=== PATIENT | female | born 1945 | race Caucasian/White ===

== ENCOUNTER 2016-04-05 15:55 | Emergency (ER) | payer OTHER ==
--- NOTE | 2016-04-05 16:46 | DIAGNOSTIC IMAGING REPORT ---
PROCEDURE: XR CHEST 2 VIEW INDICATION: Shortness of breath and cough x 4 weeks, initial encounter TECHNIQUE: PA and lateral view. COMPARISON: Chest x-ray 12/14/2015 FINDINGS: Mild hyperinflation but lungs are clear. Median sternotomy and CABG. Heart size, mediastinum and pulmonary vessels are normal. Bony thorax is unremarkable. IMPRESSION: 1. CABG 2. Hyperinflation consistent with a history of asthma
--- NOTE | 2016-04-05 18:01 | ED NURSING NOTES ---
Clinical Report - Nurses [facility] [address] [place] [address] 04/05/2016 15:56 Patient: HELADIO VILLEGAS TRIAGE Triage time 16:02. Acuity: LEVEL 3. Chief Complaint: DIFFICULTY BREATHING. 16:03 04/05/16. 16:03 04/05/16. ( Pt states she has been feeling ill. Pt states she has seen her PCP and given abx.). --16:07 Tariq Wells R.N. 16:02 04/05/16. BP: 188/87. HR: 90. RR: 20. O2 saturation: 100% on room air. Temp: 98.5 F (oral). --16:07 Tariq Wells R.N. Weight: 63.5 kg stated. Height/Length: 62 inches Per Patient. BMI: 25.6. --16:05 Tariq Wells R.N. Medications Allopurinol Oral (Tablet 300 mg) 1 tablet, daily. Aspirin Oral (Tablet 325 mg) 1 tablet, daily. D3 Adult Oral. Gabapentin Oral (Capsule 300 mg) 1 capsule, 2x a day. Isosorbide Mononitrate Oral 30mg, daily. Levothyroxine Sodium Oral 137mcg, daily. Melatonin Oral. MetFORMIN HCl ER (MOD) Oral (Tablet Extended Release 24 Hour 500 mg) 1 tablet, twice a day. Metoprolol Tartrate Oral (Tablet 50 mg) 1 tablet, twice daily. --16:05 Tariq Wells R.N. Nitroglycerin Sublingual. Oxybutynin Chloride ER Oral (Tablet Extended Release 24 Hour 5 mg) 1/2 tablet, 3 times daily. Simvastatin Oral (Tablet 80 mg) 1/2 tablet, daily. --16:05 Tariq Wells R.N. Chlorthalidone Oral (Tablet 25 mg) 1 tablet, daily. --16:52 Tariq Wells R.N. Omeprazole Oral 20 mg, daily. --16:55 Tariq Wells R.N. Probiotic Oral 1 pill, daily. --16:55 Tariq Wells R.N. The following entry was struck and corrected by Tariq Wells R.N., 16:55 (04/05/16) Reason for correction - other(correction). <<STRICKEN ENTRY-- Probiotic Oral. --16:55 Tariq Wells R.N. --END STRIKE>> The following entry was struck by Tariq Wells R.N., 16:51 (04/05/16) Reason - other. <<STRICKEN ENTRY-- Ranitidine HCl Oral (Capsule 150 mg) 1 capsule, 2x a day. --16:05 Tariq Wells R.N. --END STRIKE>>. Allergies Amlodipine. Ciprofloxacin. Codeine. Erythromycin. Nitrofurantoin. Nuts. --16:05 Tariq Wells R.N. Penicillin. PredniSONE. Zestril. --16:05 Tariq Wells R.N. Bactrim. (Bactrim DS 800/160 SMZ/TMP 800/160) --16:49 Tariq Wells R.N. History Arrived by private vehicle. Historian: patient. Accompanied by family. Primary physician ([facility]). 16:03 04/05/16. ( 3-4 Weeks ago). Treatment PRICE LISTER: None. PAST MEDICAL HX: Immunizations: up-to-date. SOCIAL HX: Former smoker (quit 20 years ago). No alcohol use or drug use. No infectious disease exposure. ABUSE ASSESSMENT: No report of abuse. FALL RISK ASSESSMENT: Fall risk assessment completed. No fall risk identified. NUTRITIONAL RISK ASSESSMENT: The nutritional risk assessment revealed no deficiencies. FUNCTIONAL ASSESSMENT: Functional assessment: no impairments noted. LEARNING NEEDS ASSESSMENT: The learning needs assessment revealed no barriers. SKIN INTEGRITY ASSESSMENT: Skin integrity risk assessment completed. No skin integrity risk identified. --16:07 Tariq Wells R.N. PROBLEMS: Allergic Reaction. Abnormal Test. Syncope. Valvular Heart Disease. Myocardial Infarction. Diabetes Mellitus. Heart Disease. Pneumonia. Asthma. Congestive Heart Failure. COPD - Chronic Obstructive Pulmonary Disease. Arthritis. --16:06 Tariq Wells R.N. Atrial Fibrillation. --16:08 Tariq Wells R.N. ADDITIONAL SURGERIES: Cholecystectomy. Coronary Artery Bypass Graft. Hysterectomy. Oophorectomy. Right breast lump removed. Salpingectomy. --16:06 Tariq Wells R.N. Assessment 16:04/05/16. --16:07 Tariq Wells R.N. Interventions 16:04/05/16. 16:04/05/16. ID and allergy band on patient. --16:07 Tariq Wells R.N. PHYSICAL ASSESSMENT 16:04/05/16. GENERAL / NEURO / PSYCH: Alert. Oriented X 4. RESPIRATORY: Mild respiratory distress. The patient can speak in full sentences. CVS: Capillary refill less than 2 seconds. SKIN: Skin is warm and dry. --16:07 Tariq Wells R.N. NURSING PROGRESS NOTES 16:04/05/16. The plan of care for this patient has been created. division human resources manager, pulse oximeter and NIBP monitor placed on patient; monitor alarms on. Patient gowned. Head of bed elevated. Two patient identifiers checked. Call light placed in reach. Side rails up x 2. Bed placed in lowest position. Brakes of bed on. Brakes of chair on. --16:08 Tariq Wells R.N. 16:04/05/16. Patient ready for evaluation- chart flagged and notification provided. --16:08 Tariq Wells R.N. 16:24 04/05/2016 Site #1 started via IV in the right antecubital space with an 20g angiocath, with aseptic technique and good blood return; one attempt. Blood drawn: rainbow set. Labeled in the presence of the patient and sent to the lab. Saline lock flushed with 10 mL saline. --16:24 Tariq Wells R.N. 16:24 04/05/2016 Started bag #1 500 mL IV Fluids IV NS (Saline); at 1000 mL/hr over 1 hour(s) via site #1. Allergies verified and confirmed 5 rights. IV patency established. IV site checked: no pain, redness, or swelling. IV flushed thoroughly pre- and post-medication administration. Completed per protocol. --16:24 Tariq Wells R.N. 16:31 04/05/16. Patient transported to radiology by wheelchair with tech. --16:31 Tariq Wells R.N. 16:32 04/05/16. ( Lacate drawn and sent to lab drawn w/o tourniquet). --16:32 Tariq Wells R.N. 16:32 04/05/16. Patient ID band checked for patient name and birthdate: patient confirmed. Instructions provided to collect clean catch urine and patient verbalized understanding. Clean catch urine collected with return of yellow-colored urine; sample sent to lab for urinalysis and culture. Specimen labeled in the presence of the patient. --16:32 Tariq Wells R.N. 16:33 04/05/16. Patient ID band checked for patient name and birthdate: patient confirmed. Flu swab obtained by RN via nasal pharyngeal swab. Labeled in the presence of the patient and sent to lab. --16:33 Tariq Wells R.N. 16:39 04/05/2016 Duoneb (Ipratropium-Albuterol) Neb TX Nebulizer 1 unit dose given. Given by the respiratory therapist. Allergies verified and confirmed 5 rights. Vinod Pang --16:39 Vinod Pang 16:41 04/05/2016 SOLU-MEDROL (MethylPREDNISolone Sodium Succ) IVP 125 mg given over 2 minute(s) via site #1. Allergies verified and confirmed 5 rights. IV patency established. IV site checked: no pain, redness, or swelling. IV flushed thoroughly pre- and post-medication administration. IVP given by RN (Verified with , ok to give despite prednisone allergy). --16:41 Tariq Wells R.N. 16:42 04/05/16. --16:42 Tariq Wells R.N. 16:41 04/05/16. BP: 175/77. HR: 76. RR: 16. O2 saturation: 100% on room air. --16:42 Tariq Wells R.N. 16:42 04/05/16. Cardiac rhythm: normal sinus rhythm; (79). --16:42 Tariq Wells R.N. 17:02 04/05/16. Patient and family informed about reason for wait and about plan of care. --17:02 Tariq Wells R.N. 17:14 04/05/2016 Potassium Chloride (Potassium Chloride ER) PO 40 meq given. Allergies verified and confirmed 5 rights. --17:14 Tariq Wells R.N. 17:15 04/05/2016 Tylenol (Acetaminophen) PO 650 mg given. Allergies verified and confirmed 5 rights. --17:15 Tariq Wells R.N. 17:16 04/05/2016 IV Fluids IV NS Discontinued: bag #1 infused. Total amount infused: 500 mL. --17:16 Tariq Wells R.N. 17:18 04/05/16. BP: 167/56. HR: 71. RR: 14. O2 saturation: 100% on nasal cannula at 2 liters/minute. --17:18 Tariq Wells R.N. 17:18 04/05/16. Cardiac rhythm: normal sinus rhythm; (70). --17:18 Tariq Wells R.N. 17:20 04/05/2016 Duoneb (Ipratropium-Albuterol) Neb TX 1 unit dose given. Given by the respiratory therapist. Allergies verified and confirmed 5 rights. --17:20 Tariq Wells R.N. 17:20 04/05/16. Reassessment after fluids administered and medication administered. Overall patient status is improved- she states feels better. --17:20 Tariq Wells R.N. 17:40 04/05/16. Patient and family informed about reason for wait and about plan of care. --17:40 Tariq Wells R.N. 17:40 04/05/16. Cardiac rhythm: normal sinus rhythm. --17:40 Tariq Wells R.N. 17:40 04/05/16. HR: 89. RR: 16. O2 saturation: 100% on nasal cannula at 2 liters/minute. --17:40 Tariq Wells R.N. 17:51 04/05/16. Cardiac rhythm: normal sinus rhythm; (91). --17:51 Tariq Wells R.N. 17:49 04/05/16. BP: 152/76. HR: 91. RR: 20. O2 saturation: 100% on nasal cannula at 2 liters/minute. Temp: 98.2 F (oral). Pain level now: 8/10. Additional comments: c/o throat pain. --17:51 Tariq Wells R.N. 17:51 04/05/16. Patient and family informed about reason for wait and about plan of care. --17:51 Tariq Wells R.N. 18:10. The patient is resting quietly. Overall patient status is improved- she states feels the same. RESPIRATORY: No respiratory distress. CVS: Cardiac rhythm: sinus rhythm. SKIN: Skin is warm and dry. --18:48 Sara Rojas R.N. DISPOSITION / DISCHARGE 18:10 04/05/2016 Site #1 removed upon discharge. Catheter intact. Bandaid applied (by Arianne Han RN). --18:45 Sara Rojas R.N. Departure time: 1809. Condition at departure: stable. No learning barriers present. Discharge instructions provided and reviewed with the patient. Patient verbalized understanding. Written instructions provided in Tunisian. The patient was discharged home and accompanied by educational administration teacher. She left the Emergency Department ambulatory and via private vehicle. FALL RISK ASSESSMENT: Fall risk assessment completed. No fall risk identified. --18:46 Sara Rojas R.N. 18:10 04/05/16. BP: 165/72. HR: 73. RR: 18. O2 saturation: 100% on room air. Temp: 98.1 F (oral). Pain level now: 0/10. Additional comments: ERMD aware of BP. --18:46 Sara Rojas R.N. Locked/Released at 04/05/2016 18:48 by Sara Rojas R.N.
--- NOTE | 2016-04-05 18:01 | ED CLINICAL REPORT ---
Clinical Report - Physicians/Mid Levels [facility] [address] [place] [address] 04/05/2016 15:56 Patient: HELADIO VILLEGAS Arrived- By private vehicle. Historian- patient. HISTORY OF PRESENT ILLNESS Chief Complaint: COUGH. This started past few days and is still present (staying the same). It was abrupt in onset and has been constant and waxing/waning but is not gone now. The illness is described as moderate. The patient has had a cough, difficulty breathing, a sore throat, nasal congestion and fever. She has had muscle aches. No chills. (reports hx of asthma). Additional history - No known contact with a sick individual. No recent travel. ( wheezing, nausea, and vomiting). Similar symptoms previously: Several times. Recent medical care: Not recently seen/assessed. REVIEW OF SYSTEMS No diarrhea. All systems otherwise negative, except as recorded above. PAST HISTORY See nurses notes. SOCIAL HISTORY Former smoker. Not exposed to second-hand smoke at home. No alcohol use or drug use. No recent travel. Is a local resident. ADDITIONAL NOTES The nursing notes have been reviewed. PHYSICAL EXAM Vital Signs: 04/05/2016 16:02 BP: 188/87. HR: 90. RR: 20. O2 saturation: 100%. Temp: 98.5 F. Blood pressure normal. Oxygen saturation normal. Appearance: Alert. No acute distress. Eyes: Pupils equal, round and reactive to light. Eyes normal inspection. ENT: Ears normal. Nose normal. Pharynx normal. Uvula midline. The mucous membranes are not dry. Neck: Normal inspection. Neck supple. No JVD or meningeal signs. CVS: Normal heart rate and rhythm. Heart sounds normal. Pulses normal. Respiratory: No respiratory distress. No respiratory distress. Expiratory bilateral wheezes diffusely. No moderate wheezes bilaterally. Breath sounds normal. No rales, rhonchi or stridor. Abdomen: Soft and nontender. No organomegaly. Back: Normal inspection. Skin: Skin warm and dry. Normal skin color. No rash. Normal skin turgor. Extremities: Extremities exhibit normal ROM. No lower extremity edema. Neuro: Oriented X 3. No motor deficit. No sensory deficit. LABS, X-RAYS, AND EKG Laboratory Tests: UA-Culture if indicated: (ARLYN: 04/05/2016 16:20) ( [facility] [place]/05/[place] 16:54) Final results Test Result Flag Units (Reference) URINE COLOR DARK YELLOW URINE APPEARANCE CLEAR URINE GLUCOSE NEGATIVE (NEGATIVE) URINE BILIRUBIN ICTOTEST NEGATIVE (NEGATIVE) URINE KETONE TRACE (NEGATIVE) URINE SPECIFIC GRAVITY 1.025 (1.010-1.030) URINE PH 5.5 (5.0-8.0) URINE PROTEIN 1+ (NEGATIVE) URINE UROBILINOGEN 0.2 EU/dL (0.2-1.0) URINE NITRITE NEGATIVE (NEGATIVE) URINE BLOOD TRACE (NEGATIVE) URINE LEUK ESTERASE NEGATIVE (NEGATIVE) URINE RBC 0-1 rbc/hpf (0-1) URINE WBC 3-5 wbc/hpf (0-1) URINE EPITHELIAL CELLS 0-1 EPI/hpf (0-5) URINE BACTERIA TRACE (<1+) (NONE SEEN) URINE COMMENT CULT NOT INDICATED 1+ MUCUSURINE CULTURES ARE SET-UP BASED ON THE FOLLOWING CRITERIA:POSITIVE NITRITEPOSITIVE LEUKOCYTE ESTERASEGREATER THAN 10 WHITE BLOOD CELLSMODERATE (2+) OR GREATER BACTERIA CBC w Diff: (ARLYN: 04/05/2016 16:20) ( [facility] 04/05/2016 16:47) Final results Test Result Flag Units (Reference) WHITE BLOOD COUNT 9.6 K/uL (4.5-11.5) RED BLOOD COUNT 4.60 M/uL (4.00-5.20) HEMOGLOBIN 13.6 gm/dL (12.0-16.0) HEMATOCRIT 40.1 % (36.0-46.0) MEAN CELL VOLUME 87 fL (80-100) MEAN CORPUSCULAR HGB 30 pg (26-34) MEAN CORPUSCULAR HGB CONC 34 g/dL (31-37) RED CELL DISTRIBUTION WIDTH 14.0 % (11.6-14.8) PLATELET COUNT 369 K/uL (150-400) NEUTROPHIL % 81.1 H % (50-75) LYMPH % 11.6 L % (25-40) MONO % 5.6 % (3-14) EOSINOPHIL % 1.5 % (0-4) BASOPHIL % 0.2 % (0-2) Lactate, Serum: (ARLYN: 04/05/2016 16:20) ( [facility] [place] 04/05/2016 17:18) Final results Test Result Flag Units (Reference) LACTIC ACID 1.1 mmol/L (0.4-2.0) CMP: (ARLYN: 04/05/2016 16:20) ( [facility] 04/05/2016 17:02) Final results Test Result Flag Units (Reference) LIPASE 235 U/L (73-393) GLUCOSE 125 H mg/dL (70-110) SAMPLE GROSSLY LIPEMIC-TREATED FOR LIPEMIC INTERFERENCE BUN 22 H mg/dL (7-18) CREATININE 1.1 mg/dL (0.6-1.3) Estimated GFR 52.34 mL/min Estimated GFR- >60 mL/min Note: Persistent reduction over 3 months in eGFR<60 mL/min/1.73 m2 defines CKD. Patients with eGFR values>=60 mL/min/1.73 m2 may also have CKD if evidence ofpersistent proteinuria. Additional information may be foundat www.kidney.org. SODIUM 141 mmol/L (136-145) POTASSIUM 3.1 L mmol/L (3.5-5.1) CHLORIDE 101 mmol/L (98-107) CARBON DIOXIDE 27 mmol/L (21-32) CALCIUM 9.1 mg/dL (8.5-10.1) TOTAL PROTEIN 8.3 H g/dL (6.4-8.2) ALBUMIN 3.8 g/dL (3.3-5.0) BILIRUBIN, TOTAL 0.2 mg/dL (0.0-1.0) ALKALINE PHOSPHATASE 118 H U/L (46-116) AST (SGOT) 16 U/L (15-37) ALT (SGPT) 24 U/L (12-78) Rapid Influenza Screen: (ARLYN: 04/05/2016 16:20) ( [facility] [place]/05/2016 16:50) Final results SPECIMEN DESCRIPTION: NASAL Test Result Flag Units (Reference) RAPID INFLUENZA SCREEN DATE: 04/05/16 INFLUENZA A: NEGATIVE SCREEN FOR INFLUENZA A INFLUENZA B: NEGATIVE SCREEN FOR INFLUENZA B . PROGRESS AND PROCEDURES Course of Care: The patient is a 70-year-old female with history of asthma presenting for evaluation of upper respiratory tract symptoms including nausea and vomiting. The patient appears to be wheezing on examination. at this time most likely viral etiology. We'll evaluate for signs of pneumonia, pancreatitis, or electrolyte derangements as a result of the patient's illness. Patient appears nontoxic. Patient is not improved as expected with breathing treatments, we'll evaluate other etiologies for any shortness of breath. After the first breathing treatment has been given, patient reports feeling significantly better. Patient is stating that it is less difficult for her to catch her breath. Patient appears less anxious at this time. Patient continues to benontoxic. We are currently awaiting patient's laboratory studies. Chest x-ray and laboratory studies did not show any acute abnormalities. Urinalysis is unremarkable. Because complete blood couoenot show acute abnormalities. Lipase and liver enzymes are also normal. Patient significantly improved afterbreathing treatments and steroids been given. We will provide patient another breathing treatment and likely be able to discharge patient once the breathing treatment has been given. Patient reports significant improvement. Patient states that she feels well enough to return home. I discussion with patient in regards to her workup here in the emergency department and need for using her inhaler. Patient states that she spent $50 on 1 inhaler and cannot afford more inhalers. Discussed with patient that there are many doses of the medication within and an inhaler and should not be afraid to use them if she is short of breath. Patient is a good outpatient candidate. Do not feel patient has pulmonary embolism. Do not feel etiology of her symptoms today are due to this. Do not feel further workup is needed. Symptoms are likely due to an asthma exacerbation from upper respiratory tract infection. Disposition: Discharged. Condition: good. CLINICAL IMPRESSION 04/05/2016 16:02 BP: 188/87. HR: 90. RR: 20. O2 saturation: 100%. Temp: 98.5 F. Blood pressure normal. Oxygen saturation normal. Acute bronchospasm (acute). Acute pharyngitis (acute). Pharyngitis. INSTRUCTIONS (take your breathing medication and antibiotics as directed). Your Current Medications: CONTINUE TAKING THE FOLLOWING MEDICATIONS: Allopurinol Oral : Tablet 300 mg, 1 tablet daily. Aspirin Oral : Tablet 325 mg, 1 tablet daily. Chlorthalidone Oral : Tablet 25 mg, 1 tablet daily. D3 Adult Oral. Gabapentin Oral : Capsule 300 mg, 1 capsule 2x a day. Isosorbide Mononitrate Oral : 30mg daily. Levothyroxine Sodium Oral : 137mcg daily. Melatonin Oral. MetFORMIN HCl ER (MOD) Oral : Tablet Extended Release 24 Hour 500 mg, 1 tablet twice a day. Metoprolol Tartrate Oral : Tablet 50 mg, 1 tablet twice daily. Nitroglycerin Sublingual. Omeprazole Oral : 20 mg daily. Oxybutynin Chloride ER Oral : Tablet Extended Release 24 Hour 5 mg, 1/2 tablet 3 times daily. Probiotic Oral : 1 pill daily. Simvastatin Oral : Tablet 80 mg, 1/2 tablet daily. Follow-up: Return to the emergency department as needed. Follow up with your doctor in three days. Reason for referral: recheck today's concerns. Summary of care provided to patient via paper. Screening today revealed the patient's blood pressure to be in the normal range. The patient should follow up with a primary care provider for blood pressure management. Understanding of the discharge instructions verbalized by patient. (Electronically signed by Clif Victoria Dr. 04/08/2016 6:53)
--- NOTE | 2016-04-05 18:01 | ED ORDER SUMMARY ---
..... Patient: HELADIO VILLEGAS OrderSheet [facility] VisitID: [id number] [address] [place] [address] 70y, F Registration Date/Time: 04/05/2016 ORDER SHEET Weight: 63.5 kg (stated) Allergies: Amlodipine, Ciprofloxacin, Codeine, Erythromycin, Nitrofurantoin, Nuts, Penicillin, PredniSONE, Zestril, Bactrim GENERAL ORDERS: Chest 2V Urgent (16:17 04/05/2016 Gagandeep Leos) (Ack 16:21 LMuller) (16:31 JBoardley R.N.) Cops (Continuous) (Respiratory Distress) (16:17 04/05/2016 Gagandeep Leos) (Ack 16:21 LMuller) (16:22 JBoardley R.N.) CMP Urgent (16:18 04/05/2016 Gagandeep Leos) (Ack 16:21 LMuller) (16:23 JBoardley R.N.) CBC w Diff Urgent (16:18 04/05/2016 Gagandeep Leos) (Ack 16:21 LMuller) (16:23 JBoardley R.N.) Lipase Urgent (16:18 04/05/2016 Gagandeep Leos) (Ack 16:21 LMuller) (16:23 JBoardley R.N.) UA-Culture if indicated Urgent (16:18 04/05/2016 Gagandeep eLos) (Ack 16:21 LMuller) (16:33 JBoardley R.N.) Lactate, Serum Urgent (16:18 04/05/2016 Gagandeep Leos) (Ack 16:21 LMuller) (16:23 JBoardley R.N.) Pulse oximeter (16:18 04/05/2016 Gagandeep Leos) (Ack 16:21 LMuller) (16:22 JBoardley R.N.) Oxygen (2 L/min) (NC) (16:18 04/05/2016 Gagandeep Leos) (Ack 16:21 LMuller) (16:22 JBoardley R.N.) Rapid Influenza Screen (Nasal Pharyngeal) (nasal) Urgent (16:26 04/05/2016 JBmalachi R.NHemal verbal order read back to Gagandeep Leos) (16:31 JBoardley R.N.) MEDICATION ORDERS: DuoNeb Neb Tx 1 unit dose (NOW) (16:18 04/05/2016 Gagandeep Leos) (Ack 16:22 JBoardlelopez R.N.) (16:39 JZiglar) Potassium Chloride PO 40 meq (NOW) (17:07 04/05/2016 Gagandeep Leos) (Ack 17:07 JBoardley R.N.) (17:14 JBoardlelopez R.N.) Tylenol PO 650 mg (NOW) (17:07 04/05/2016 Gagandeep Leos) (Ack 17:07 JBoardley R.N.) (17:15 JBoardley R.N.) DuoNeb Neb Tx 1 unit dose (NOW) (17:09 04/05/2016 Gagandeep Leos) (17:20 JBoardley R.N.) IV FLUIDS: IV NS : initial bolus 500 mL (1000 mL/hr), then none - for X1 (NOW) (16:17 04/05/2016 Gagandeep Leos) (Ack 16:23 JBoardley R.N.) (16:24 JBoardley R.N.) Solu-MEDROL IV 125 mg (NOW) (16:18 04/05/2016 Gagandeep Leos) (Ack 16:23 JBoardley R.N.) (16:41 JBoardley R.N.) ORDER SHEET NOTES: [Electronically signed by Sara Rojas R.N. (18:48 04/05/2016)] [Electronically signed by Clif Victoria Dr. (06:53 04/08/2016)] [Electronically locked/signed by Sara Rojas R.N. (18:48 04/05/2016)]
--- NOTE | 2016-04-05 18:01 | ED ORDER SUMMARY ---
..... Patient: HELADIO VILLEGAS OrderSheet [facility] VisitID: [id number] [address] [place] [address] 70y, F Registration Date/Time: 04/05/2016 ORDER SHEET Weight: 63.5 kg (stated) Allergies: Amlodipine, Ciprofloxacin, Codeine, Erythromycin, Nitrofurantoin, Nuts, Penicillin, PredniSONE, Zestril, Bactrim GENERAL ORDERS: Chest 2V Urgent (16:17 04/05/2016 Gagandeep Leos) (Ack 16:21 LMuller) (16:31 JBoardley R.N.) Developer Relations Manager (Continuous) (Respiratory Distress) (16:17 04/05/2016 Gagandeep Leos) (Ack 16:21 LMuller) (16:22 JBoardley R.N.) CMP Urgent (16:18 04/05/2016 Gagandeep Leos) (Ack 16:21 LMuller) (16:23 JBoardley R.N.) CBC w Diff Urgent (16:18 04/05/2016 Gagandeep Leos) (Ack 16:21 LMuller) (16:23 JBoardley R.N.) Lipase Urgent (16:18 04/05/2016 Gagandeep Leos) (Ack 16:21 LMuller) (16:23 JBoardley R.N.) UA-Culture if indicated Urgent (16:18 04/05/2016 Gagandeep Leos) (Ack 16:21 LMuller) (16:33 JBoardley R.N.) Lactate, Serum Urgent (16:18 04/05/2016 Gagandeep Leos) (Ack 16:21 LMuller) (16:23 JBoardley R.N.) Pulse oximeter (16:18 04/05/2016 Gagandeep Leos) (Ack 16:21 LMuller) (16:22 JBoardley R.N.) Oxygen (2 L/min) (NC) (16:18 04/05/2016 Gagandeep Leos) (Ack 16:21 LMuller) (16:22 JBoardley R.N.) Rapid Influenza Screen (Nasal Pharyngeal) (nasal) Urgent (16:26 04/05/2016 JBmalachi R.NHemal verbal order read back to Gagandeep Leos) (16:31 JBoardley R.N.) MEDICATION ORDERS: DuoNeb Neb Tx 1 unit dose (NOW) (16:18 04/05/2016 Gagandeep Leos) (Ack 16:22 JBoardlelopez R.N.) (16:39 JZiglar) Potassium Chloride PO 40 meq (NOW) (17:07 04/05/2016 Gagandeep Leos) (Ack 17:07 JBoardley R.N.) (17:14 JBoardlelopez R.N.) Tylenol PO 650 mg (NOW) (17:07 04/05/2016 Gagandeep Leos) (Ack 17:07 JBoardley R.N.) (17:15 JBoardley R.N.) DuoNeb Neb Tx 1 unit dose (NOW) (17:09 04/05/2016 Gagandeep Leos) (17:20 JBoardley R.N.) IV FLUIDS: IV NS : initial bolus 500 mL (1000 mL/hr), then none - for X1 (NOW) (16:17 04/05/2016 Gagandeep Leos) (Ack 16:23 JBoardley R.N.) (16:24 JBoardley R.N.) Solu-MEDROL IV 125 mg (NOW) (16:18 04/05/2016 Gagandeep Leos) (Ack 16:23 JBoardley R.N.) (16:41 JBoardley R.N.) ORDER SHEET NOTES: [Electronically signed by Sara Rojas R.N. (18:48 04/05/2016)] [Electronically signed by Clif Victoria Dr. (06:53 04/08/2016)] [Electronically locked/signed by Sara Rojas R.N. (18:48 04/05/2016)]
--- NOTE | 2016-04-08 06:54 | ED DISCHARGE INSTRUCTIONS ---
Patient: HELADIO VILLEGAS General Instructions [facility] VisitID: [id number] [place] [address] 70y, F Registration Date/Time: 04/05/2016 04/05/2016 16:02 BP: 188/87. HR: 90. RR: 20. O2 saturation: 100%. Temp: 98.5 F. Blood pressure normal. Oxygen saturation normal. Acute bronchospasm (acute). Acute pharyngitis (acute). Pharyngitis. INSTRUCTIONS (take your breathing medication and antibiotics as directed). Your Current Medications: CONTINUE TAKING THE FOLLOWING MEDICATIONS: Allopurinol Oral : Tablet 300 mg, 1 tablet daily. Aspirin Oral : Tablet 325 mg, 1 tablet daily. Chlorthalidone Oral : Tablet 25 mg, 1 tablet daily. D3 Adult Oral. Gabapentin Oral : Capsule 300 mg, 1 capsule 2x a day. Isosorbide Mononitrate Oral : 30mg daily. Levothyroxine Sodium Oral : 137mcg daily. Melatonin Oral. MetFORMIN HCl ER (MOD) Oral : Tablet Extended Release 24 Hour 500 mg, 1 tablet twice a day. Metoprolol Tartrate Oral : Tablet 50 mg, 1 tablet twice daily. Nitroglycerin Sublingual. Omeprazole Oral : 20 mg daily. Oxybutynin Chloride ER Oral : Tablet Extended Release 24 Hour 5 mg, 1/2 tablet 3 times daily. Probiotic Oral : 1 pill daily. Simvastatin Oral : Tablet 80 mg, 1/2 tablet daily. Follow-up: Return to the emergency department as needed. Follow up with your doctor in three days. Reason for referral: recheck today's concerns. Summary of care provided to patient via paper. Screening today revealed the patient's blood pressure to be in the normal range. The patient should follow up with a primary care provider for blood pressure management. Understanding of the discharge instructions verbalized by patient. ADDITIONAL INFORMATION Bronchospasm (Adult) Bronchospasm occurs when the airways (bronchial tubes) go into spasm and contract. This makes it hard to breathe and causes wheezing (a high-pitched whistling sound). Bronchospasm can also cause frequent coughing without the wheezing sound. Bronchospasm is due to irritation, inflammation or allergic reaction of the airways. People with asthma get bronchospasm. However, not everyone with bronchospasm has asthma. Being exposed to harmful fumes, a recent case of bronchitis, or a flare-up of chronic emphysema (COPD) may cause the airways to spasm. An episode of bronchospasm may last 7-14 days. Medicine may be prescribed to relax the airways and prevent wheezing. Antibiotics will be prescribed only if your doctor thinks there is a bacterial infection. Antibiotics do not help a viral infection. Home Care: Drink lots of water or other fluids (at least 10 glasses a day) during an attack. This will loosen lung secretions and make it easier to breathe. If you have heart or kidney disease, check with your doctor before you drink extra amounts of fluids. Take prescribed medicine exactly at the times advised. If you have a hand-held inhaler or aerosol breathing medicine, do not use it more than once every four hours, unless told to do so. If prescribed an antibiotic or prednisone, take all of the medicine even if you are feeling better after a few days. Do not smoke. Avoid being exposed to the smoke of others. If you were given an inhaler, use it exactly as directed. If you need to use it more often than prescribed, your condition may be getting worse. Contact your doctor or this facility. Follow Up With Your Doctor, Or As Directed. [ NOTE: If you are age 65 or older, or if you have chronic asthma or COPD, we recommend a PNEUMOCOCCAL VACCINATION every five years and a yearly INFLUENZA VACCINATION (FLU-SHOT) every . Ask your doctor about this.] Get Prompt Medical Attention If Any Of The Following Occur: Increased wheezing or shortness of breath Need to use your inhalers more often than usual without relief Fever of 100.4F (38C) or higher, or as directed by your healthcare provider Coughing up lots of dark-colored or bloody sputum (mucus) Chest pain with each breath You do not start to improve within 24 hours Viral Respiratory Illness [Adult] You have an Upper Respiratory Illness (URI) caused by a virus. This illness is contagious during the first few days. It is spread through the air by coughing and sneezing or by direct contact (touching the sick person and then touching your own eyes, nose or mouth). Most viral illnesses go away within 7-10 days with rest and simple home remedies. Sometimes, the illness may last for several weeks. Antibiotics will not kill a virus and are generally not prescribed for this condition. Home Care: 1) If symptoms are severe, rest at home for the first 2-3 days. When you resume activity, don't let yourself get too tired. 2) Avoid being exposed to cigarette smoke (yours or others). 3) Tylenol (acetaminophen) or ibuprofen (Advil, Motrin) will help fever, muscle aching and headache. (Persons under 18 with fever should not take aspirin since this may cause liver damage.) 4) Your appetite may be poor, so a light diet is fine. Avoid dehydration by drinking 6-8 glasses of fluids per day (water, soft drinks, juices, tea, soup). Extra fluids will help loosen secretions in the nose and lungs. 5) Orhq-fsy-ovbbrmg cold medicines will not shorten the length of time youre sick, but they may be helpful for the following symptoms: cough (Robitussin DM); sore throat (Chloraseptic lozenges or spray); nasal and sinus congestion (Actifed, Sudafed, Chlortrimeton). Follow Up with your doctor or as advised if you dont improve over the next week. Get Prompt Medical Attention if any of the following occur: -- Cough with lots of colored sputum (mucus) or blood in your sputum -- Chest pain, shortness of breath, wheezing or have trouble breathing -- Severe headache; face, neck or ear pain -- Fever over 100.4 F (38.0 C) for more than three days -- You cant swallow due to throat pain You have been given the following additional information: Bronchospasm (Adult) Uri, Viral, No Abx (Adult) (Electronically signed by Clif Victoria Dr. 04/08/2016 6:53)
--- NOTE | 2016-04-08 06:55 | ED MAR SUMMARY ---
..... Medication Administration Record [facility] [address] [place] [address] Patient: HELADIO VILLEGAS Visit ID: [id number] 70y, F Weight: 63.5 kg Height/Length: 62 in BMI: 25.6 ALLERGIES: Amlodipine, Ciprofloxacin, Codeine, Erythromycin, Nitrofurantoin, Nuts, Penicillin, PredniSONE, Zestril, Bactrim Start 16:24 04/05/2016 Tariq Wells R.N., Stop 17:16 04/05/2016 Tariq Wells R.N. Medication Administered: IV NS (SALINE), Dose: IV Fluids over 1 hour(s), Rate: 1000 mL/hr, Dispensed: 500 mL bag, Site: #1 right AC. Medication Ordered: IV NS : initial bolus 500 mL (1000 mL/hr), then none - for X1 (NOW). Given 16:39 04/05/2016 Vinod Pang, Medication Administered: DUONEB [NEB TX] (IPRATROPIUM-ALBUTEROL), Dose: 1 unit dose Nebulizer Neb TX. Medication Ordered: DuoNeb Neb Tx 1 unit dose (NOW). Given 16:41 04/05/2016 Tariq Wells R.N. Medication Administered: SOLU-MEDROL [IVP] (METHYLPREDNISOLONE SODIUM SUCC), Dose: 125 mg IVP over 2 minute(s), Site: #1 right AC. Medication Ordered: Solu-MEDROL IV 125 mg (NOW). Given 17:14 04/05/2016 Tariq Wells R.N. Medication Administered: POTASSIUM CHLORIDE [PO] (POTASSIUM CHLORIDE ER), Dose: 40 meq PO. Medication Ordered: Potassium Chloride PO 40 meq (NOW). Given 17:15 04/05/2016 Tariq Wells R.N. Medication Administered: TYLENOL [PO] (ACETAMINOPHEN), Dose: 650 mg PO. Medication Ordered: Tylenol PO 650 mg (NOW). Given 17:20 04/05/2016 Tariq Wells R.N. Medication Administered: DUONEB [NEB TX] (IPRATROPIUM-ALBUTEROL), Dose: 1 unit dose Neb TX. Medication Ordered: DuoNeb Neb Tx 1 unit dose (NOW).
--- NOTE | 2016-04-08 06:55 | ED MED RECONCILIATION SUMMARY ---
Patient: HELADIO VILLEGAS Medication Reconciliation Report [facility] VisitID: [id number] [address] [place] [address] 70y, F Registration Date/Time: 04/05/2016 Weight: 63.5 kg Height/Length: 62 in. BMI: 25.6 ALLERGIES: Amlodipine, Bactrim, Ciprofloxacin, Codeine, Erythromycin, Nitrofurantoin, Nuts, Penicillin, PredniSONE, Zestril The patient's Home Medications are listed below: CONTINUE TAKING THE FOLLOWING MEDICATIONS: Allopurinol Oral (300 mg) 1 tablet, daily Aspirin Oral (325 mg) 1 tablet, daily Chlorthalidone Oral (25 mg) 1 tablet, daily D3 Adult Oral Gabapentin Oral (300 mg) 1 capsule, 2x a day Isosorbide Mononitrate Oral 30mg, daily Levothyroxine Sodium Oral 137mcg, daily Melatonin Oral MetFORMIN HCl ER (MOD) Oral (500 mg) 1 tablet, twice a day Metoprolol Tartrate Oral (50 mg) 1 tablet, twice daily Nitroglycerin Sublingual Omeprazole Oral 20 mg, daily Oxybutynin Chloride ER Oral (5 mg) 1/2 tablet, 3 times daily Probiotic Oral 1 pill, daily Simvastatin Oral (80 mg) 1/2 tablet, daily The source(s) of the original Home Medication information: Not obtained. The following Medications were given to the patient in the Emergency Department: IV NS IV Fluids bolus 0, then 1000 mL/hr, administered: 04/05/2016 4:24:00 PM Duoneb [Neb Tx] Neb TX 1 unit dose, administered: 04/05/2016 4:39:00 PM SOLU-MEDROL [IVP] IVP 125 mg, administered: 04/05/2016 4:41:00 PM Potassium Chloride [PO] PO 40 meq, administered: 04/05/2016 5:14:00 PM Tylenol [PO] PO 650 mg, administered: 04/05/2016 5:15:00 PM Duoneb [Neb Tx] Neb TX 1 unit dose, administered: 04/05/2016 5:20:00 PM The following Medications were prescribed to the patient: None.
--- NOTE | 2016-04-08 06:55 | ED MAR SUMMARY ---
..... Medication Administration Record [facility] [address] [place] [address] Patient: HELADIO VILLEGAS Visit ID: [id number] 70y, F Weight: 63.5 kg Height/Length: 62 in BMI: 25.6 ALLERGIES: Amlodipine, Ciprofloxacin, Codeine, Erythromycin, Nitrofurantoin, Nuts, Penicillin, PredniSONE, Zestril, Bactrim Start 16:24 04/05/2016 Tariq Wells R.N., Stop 17:16 04/05/2016 Tariq Wells R.N. Medication Administered: IV NS (SALINE), Dose: IV Fluids over 1 hour(s), Rate: 1000 mL/hr, Dispensed: 500 mL bag, Site: #1 right AC. Medication Ordered: IV NS : initial bolus 500 mL (1000 mL/hr), then none - for X1 (NOW). Given 16:39 04/05/2016 Vinod Pang, Medication Administered: DUONEB [NEB TX] (IPRATROPIUM-ALBUTEROL), Dose: 1 unit dose Nebulizer Neb TX. Medication Ordered: DuoNeb Neb Tx 1 unit dose (NOW). Given 16:41 04/05/2016 Tariq Wells R.N. Medication Administered: SOLU-MEDROL [IVP] (METHYLPREDNISOLONE SODIUM SUCC), Dose: 125 mg IVP over 2 minute(s), Site: #1 right AC. Medication Ordered: Solu-MEDROL IV 125 mg (NOW). Given 17:14 04/05/2016 Tariq Wells R.N. Medication Administered: POTASSIUM CHLORIDE [PO] (POTASSIUM CHLORIDE ER), Dose: 40 meq PO. Medication Ordered: Potassium Chloride PO 40 meq (NOW). Given 17:15 04/05/2016 Tariq Wells R.N. Medication Administered: TYLENOL [PO] (ACETAMINOPHEN), Dose: 650 mg PO. Medication Ordered: Tylenol PO 650 mg (NOW). Given 17:20 04/05/2016 Tariq Wells R.N. Medication Administered: DUONEB [NEB TX] (IPRATROPIUM-ALBUTEROL), Dose: 1 unit dose Neb TX. Medication Ordered: DuoNeb Neb Tx 1 unit dose (NOW).
--- NOTE | 2016-04-08 06:55 | ED MED RECONCILIATION SUMMARY ---
Patient: HELADIO VILLEGAS Medication Reconciliation Report [facility] VisitID: [id number] [address] [place] [address] 70y, F Registration Date/Time: 04/05/2016 Weight: 63.5 kg Height/Length: 62 in. BMI: 25.6 ALLERGIES: Amlodipine, Bactrim, Ciprofloxacin, Codeine, Erythromycin, Nitrofurantoin, Nuts, Penicillin, PredniSONE, Zestril The patient's Home Medications are listed below: CONTINUE TAKING THE FOLLOWING MEDICATIONS: Allopurinol Oral (300 mg) 1 tablet, daily Aspirin Oral (325 mg) 1 tablet, daily Chlorthalidone Oral (25 mg) 1 tablet, daily D3 Adult Oral Gabapentin Oral (300 mg) 1 capsule, 2x a day Isosorbide Mononitrate Oral 30mg, daily Levothyroxine Sodium Oral 137mcg, daily Melatonin Oral MetFORMIN HCl ER (MOD) Oral (500 mg) 1 tablet, twice a day Metoprolol Tartrate Oral (50 mg) 1 tablet, twice daily Nitroglycerin Sublingual Omeprazole Oral 20 mg, daily Oxybutynin Chloride ER Oral (5 mg) 1/2 tablet, 3 times daily Probiotic Oral 1 pill, daily Simvastatin Oral (80 mg) 1/2 tablet, daily The source(s) of the original Home Medication information: Not obtained. The following Medications were given to the patient in the Emergency Department: IV NS IV Fluids bolus 0, then 1000 mL/hr, administered: 04/05/2016 4:24:00 PM Duoneb [Neb Tx] Neb TX 1 unit dose, administered: 04/05/2016 4:39:00 PM SOLU-MEDROL [IVP] IVP 125 mg, administered: 04/05/2016 4:41:00 PM Potassium Chloride [PO] PO 40 meq, administered: 04/05/2016 5:14:00 PM Tylenol [PO] PO 650 mg, administered: 04/05/2016 5:15:00 PM Duoneb [Neb Tx] Neb TX 1 unit dose, administered: 04/05/2016 5:20:00 PM The following Medications were prescribed to the patient: None.
== END 2016-04-05 18:10 | disposition home or self-care (01) ==
LOC: ED SRH 15:55
DX: J98.01 Acute bronchospasm (principal); J02.9 Acute pharyngitis, unspecified; E11.9 Type 2 diabetes mellitus without complications; I25.2 Old myocardial infarction; I50.9 Heart failure, unspecified; Z90.49 Acquired absence of other specified parts of digestive tract; Z90.710 Acquired absence of both cervix and uterus; Z87.891 Personal history of nicotine dependence; Z88.0 Allergy status to penicillin; Z88.1 Allergy status to other antibiotic agents
CPT/HCPCS: 90004; 90100; 91400; 92031; 92235; 95059

== ENCOUNTER 2016-04-18 10:54 | Emergency (ER) | payer OTHER ==
--- NOTE | 2016-04-18 11:46 | DIAGNOSTIC IMAGING REPORT ---
PROCEDURE: XR CHEST 2 VIEW INDICATION: COUGH, initial encounter TECHNIQUE: PA and lateral view. COMPARISON: Chest x-ray 04/05/2016 FINDINGS: Lungs are clear. Median sternotomy and CABG. Heart size, mediastinum and pulmonary vessels are normal. Bony thorax is unremarkable. IMPRESSION: 1. No acute changes 2. CABG
--- NOTE | 2016-04-18 13:28 | ED ORDER SUMMARY ---
..... Patient: HELADIO VILLEGAS OrderSheet [facility] VisitID: [id number] [place] [address] 70y, F Registration Date/Time: 04/18/2016 ORDER SHEET Weight: 68.9 kg (stated) Allergies: Amlodipine, Bactrim, Ciprofloxacin, Codeine, Erythromycin, Nitrofurantoin, Nuts, Penicillin, PredniSONE, Zestril, All vaccines GENERAL ORDERS: - (humidified air) (11:25 04/18/2016 Gagandeep Leos) (Ack 11:31 NMouse ER Tech1) (11:43 KWilliams R.N.) Chest 2V Urgent (11:04/18/2016 Gagandeep Leos) (Ack 11:32 NMouse ER Tech1) (11:37 [facility] ER Tech1) Ssrs Developer (Continuous) (throat swelling) (11:04/18/2016 Gagandeep Leos) (11:43 KWilliams R.N.) Culture, Strep Screen Urgent (11:04/18/2016 Gagandeep Leos) (Ack 11:32 NMouse ER Tech1) (11:34 KWilliams R.N.) Pulse oximeter (11:04/18/2016 Gagandeep Leos) (11:43 KWilliams R.N.) Oxygen (2 L/min) (NC) (11:04/18/2016 Gagandeep Leos) (Cancelled: 99% RA11:54 KWilliams R.N.) Old Records (Old EKG) (11:30 04/18/2016 [facility] ER Tech1 per protocol) (11:32 [facility] ER Tech1) EKG - ER Stat (11:31 04/18/2016 [facility] ER Tech1 per protocol) (11:32 [facility] ER Tech1) MEDICATION ORDERS: Lidocaine Viscous PO (Solution 2 %) 10 mL (NOW) (12:44 04/18/2016 Gagandeep Leos) (12:51 KWilliams R.N.) IV FLUIDS: Decadron IV 10 mg (NOW) (11:26 04/18/2016 Gagandeep Leos) (11:44 KWilliams R.N.) ORDER SHEET NOTES: [Electronically signed by Janel Thompson R.N. (14:14 04/18/2016)] [Electronically signed by Clif Victoria Dr. (03:40 04/20/2016)] [Electronically locked/signed by Janel Thompson R.N. (14:14 04/18/2016)]
--- NOTE | 2016-04-18 13:28 | ED NURSING NOTES ---
Clinical Report - Nurses [facility] [address] [place] [address] 04/18/2016 10:59 Patient: HELADIO VILLEGAS TRIAGE Triage time 11:02. Acuity: LEVEL 3. Chief Complaint: SHORTNESS OF BREATH. 11:14 04/18/16. Alert. SEPSIS SCREEN: Sepsis Screen. Negative (no infection suspected/documented). Temperature not greater than 38.3 degrees C (101 degrees F). --11:14 Sandor Mosher R.N. 11:06 04/18/16. BP: 173/88. HR: 91. RR: 24. O2 saturation: 99% on room air. Temp: 98.7 F (oral). Pain level now 1010. --11:14 Sandor Mosher R.N. Weight: 68.9 kg stated. Height/Length: 62 inches Per Patient. BMI: 27.8. --11:06 Sandor Mosher R.N. Medications Allopurinol Oral (Tablet 300 mg) 1 tablet, daily. Aspirin Oral (Tablet 325 mg) 1 tablet, daily. Chlorthalidone Oral (Tablet 25 mg) 1 tablet, daily. D3 Adult Oral. --11:12 Sandor Mosher R.N. Gabapentin Oral (Capsule 300 mg) 1 capsule, 2x a day. Isosorbide Mononitrate Oral 30mg, daily. Levothyroxine Sodium Oral 137mcg, daily. Melatonin Oral. MetFORMIN HCl ER (MOD) Oral (Tablet Extended Release 24 Hour 500 mg) 1 tablet, twice a day. Metoprolol Tartrate Oral (Tablet 50 mg) 1 tablet, twice daily. Nitroglycerin Sublingual. Omeprazole Oral 20 mg, daily. Oxybutynin Chloride ER Oral (Tablet Extended Release 24 Hour 5 mg) 1/2 tablet, 3 times daily. Probiotic Oral 1 pill, daily. Simvastatin Oral (Tablet 80 mg) 1/2 tablet, daily. --11:12 Sandor Mosher R.N. Allergies Amlodipine. Bactrim. (Bactrim DS 800/160 SMZ/TMP 800/160) Ciprofloxacin. Codeine. Erythromycin. Nitrofurantoin. Nuts. Penicillin. PredniSONE. Zestril. --11:12 Sandor Mosher R.N. All vaccines. --11:12 Sandor Mosher R.N. Medication/allergy information source: the patient. --11:14 Sandor Mosher R.N. History Primary physician (maylin). ( c/o sore throat x 8 weeks, called 911 today due to feeling like her throat was tightening and shortening of breath.). This started today. Treatment TECHNICIANS AND TRADES WORKERS: (albuterol). EMS treatment TECHNICIANS AND TRADES WORKERS verbally communicated. BP: 170/99. HR: 90. RR: 22. O2 saturation: 99 % room air. End tidal CO2: 30. Upon arrival patient awake. SOCIAL HX: Former smoker, end date 2006. No alcohol use or drug use. FALL RISK ASSESSMENT: Fall risk assessment completed. No fall risk identified. NUTRITIONAL RISK ASSESSMENT: The nutritional risk assessment revealed no deficiencies. FUNCTIONAL ASSESSMENT: Functional assessment: no impairments noted. LEARNING NEEDS ASSESSMENT: The learning needs assessment revealed no barriers. SKIN INTEGRITY ASSESSMENT: Skin integrity risk assessment completed. No skin integrity risk identified. --11:14 Sandor Mosher R.N. PROBLEMS: URI. Bronchospasm. Pharyngitis. Atrial Fibrillation. Allergic Reaction. Abnormal Test. Syncope. Valvular Heart Disease. Myocardial Infarction. Diabetes Mellitus. COPD - Chronic Obstructive Pulmonary Disease. Pneumonia. Heart Disease. Congestive Heart Failure. Asthma. Arthritis. --11:12 Sandor Mosher R.N. ADDITIONAL SURGERIES: Cholecystectomy. Coronary Artery Bypass Graft. Hysterectomy. Oophorectomy. Right breast lump removed. Salpingectomy. --11:12 Sandor Mosher R.N. Interventions ID band on patient. To treatment room. --11:14 Sandor Mosher R.N. PHYSICAL ASSESSMENT 11:15 04/18/16. To room via stretcher. GENERAL / NEURO / PSYCH: Alert. Oriented X 4. Appears anxious. RESPIRATORY: Mild respiratory distress. The patient can speak in full sentences. Chest nontender. CVS: Capillary refill less than 2 seconds. GI / : Abdomen soft and nontender. SKIN: Skin is warm and dry. --11:15 Sandor Mosher R.N. NURSING PROGRESS NOTES 11:15 04/18/16. The plan of care for this patient has been created. Patient gowned. Head of bed elevated. Call light placed in reach. Bed placed in lowest position. Brakes of bed on. Patient ready for evaluation- chart flagged. --11:15 Sandor Mosher R.N. EKG time: (1110). EKG was ordered, performed by a tech and shown to the ED physician. --11:17 Barbi Clarke ER Tech1 Patient ID band checked for patient name and birthdate: patient confirmed. Throat swab obtained for rapid strep; labeled in the presence of the patient and sent to lab. --11:33 Sandor Mosher R.N. Patient transported to radiology by stretcher with tech. --11:34 Sandor Mosher R.N. 11:39 04/18/2016 Site #1 started via IV in the right forearm with an 20g angiocath, with aseptic technique and good blood return; one attempt. Saline lock flushed with 10 mL saline. --11:44 Sandor Mosher R.N. 11:39 04/18/2016 Decadron IVP 10 mg given over 2 minute(s) via site #1. Allergies verified and confirmed 5 rights. IV patency established. IV site checked: no pain, redness, or swelling. IV flushed thoroughly pre- and post-medication administration. IVP given by RN. --11:44 Sandor Mosher R.N. 11:45 04/18/16. ( placed on humidified medical air via NC, patient sat 99% on room air). --11:45 Sandor Mosher R.N. 11:48 04/18/16. quality assurance monitor, pulse oximeter and NIBP monitor placed on patient. --11:48 Sandor Mosher R.N. 11:54 04/18/16. BP: 146/69. HR: 82. RR: 15. O2 saturation: 97%. --11:54 Sandor Mosher R.N. 11:54 04/18/16. Cardiac rhythm: normal sinus rhythm. --11:54 Sandor Mosher R.N. 12:44 04/18/16. BP: 186/66. HR: 69. RR: 17. O2 saturation: 99% on room air. --12:47 Sandor Mosher R.N. 12:47 04/18/16. Cardiac rhythm: normal sinus rhythm. The patient reports no complaints and she is calm and resting quietly. Overall patient status is improved- she states feels better. --12:47 Sandor Mosher R.N. 12:51 04/18/2016 Lidocaine Viscous PO Solution/Elixir 10 mL given. Allergies verified and confirmed 5 rights. --12:51 Sandor Mosher R.N. 13:23 04/18/16. Cardiac rhythm: normal sinus rhythm. --13:23 Sandor Mosher R.N. 13:23 04/18/16. BP: 160/76. HR: 72. RR: 16. O2 saturation: 98%. --13:23 Sandor Mosher R.N. DISPOSITION / DISCHARGE 14:10. Departure time: 1410. ( 13:23 04/18/16. BP: 160/76. HR: 72. RR: 16. O2 saturation: 98%. --13:23 Sandor Mosher R.N.). No learning barriers present. Discharge instructions provided and reviewed with the patient. Reviewed medication(s) side effects, precautions, dosing and course information. Prescription(s) given to the patient. Reviewed referral to family practice for followup. Patient verbalized understanding. Written instructions provided in Persian. The patient was discharged home and accompanied by job printer apprentice. She left the Emergency Department ambulatory and via private vehicle. Payment Rep driving. Medication list reviewed and validated. --14:13 Janel Thompson R.N. 14:10 04/18/16. RR: 18. --14:13 Janel Thompson R.N. 14:10 04/18/2016 Site #1 removed upon discharge. Catheter intact. Manual pressure and bandaid applied. --14:14 Janel Thompson R.N. Locked/Released at 04/18/2016 14:14 by Janel Thompson R.N.
--- NOTE | 2016-04-18 13:28 | ED ORDER SUMMARY ---
..... Patient: HELADIO VILLEGAS OrderSheet [facility] VisitID: [id number] [place] [address] 70y, F Registration Date/Time: 04/18/2016 ORDER SHEET Weight: 68.9 kg (stated) Allergies: Amlodipine, Bactrim, Ciprofloxacin, Codeine, Erythromycin, Nitrofurantoin, Nuts, Penicillin, PredniSONE, Zestril, All vaccines GENERAL ORDERS: - (humidified air) (11:25 04/18/2016 Gagandeep Leos) (Ack 11:31 RIouse ER Tech1) (11:43 KWilliams R.N.) Chest 2V Urgent (11:04/18/2016 Gagandeep Leos) (Ack 11:32 RIouse ER Tech1) (11:37 RIouse ER Tech1) Director Of Social Services (Continuous) (throat swelling) (11:04/18/2016 Gagandeep Leos) (11:43 KWilliams R.N.) Culture, Strep Screen Urgent (11:04/18/2016 Gagandeep Leos) (Ack 11:32 RIouse ER Tech1) (11:34 KWilliams R.N.) Pulse oximeter (11:04/18/2016 Gagandeep Leos) (11:43 KWilliams R.N.) Oxygen (2 L/min) (NC) (11:04/18/2016 Gagandeep Leos) (Cancelled: 99% RA11:54 KWilliams R.N.) Old Records (Old EKG) (11:30 04/18/2016 [facility] ER Tech1 per protocol) (11:32 [facility] ER Tech1) EKG - ER Stat (11:31 04/18/2016 [facility] ER Tech1 per protocol) (11:32 [facility] ER Tech1) MEDICATION ORDERS: Lidocaine Viscous PO (Solution 2 %) 10 mL (NOW) (12:44 04/18/2016 Gagandeep Leos) (12:51 KWilliams R.N.) IV FLUIDS: Decadron IV 10 mg (NOW) (11:26 04/18/2016 Gagandeep Leos) (11:44 KWilliams R.N.) ORDER SHEET NOTES: [Electronically signed by Janel Thompson R.N. (14:14 04/18/2016)] [Electronically signed by Clif Victoria Dr. (03:40 04/20/2016)] [Electronically locked/signed by Janel Thompson R.N. (14:14 04/18/2016)]
--- NOTE | 2016-04-18 13:28 | ED CLINICAL REPORT ---
Clinical Report - Physicians/Mid Levels Located Within [facility] [address] [place] [address] 04/18/2016 10:59 Patient: HELADIO VILLEGAS Arrived- By private vehicle. Historian- patient. HISTORY OF PRESENT ILLNESS Chief Complaint: SORE THROAT. This started past month and is still present and worsening. It was gradual in onset and has been waxing/waning but is not gone now. Pain described as moderate. The patient has had a sore throat. (patient reports having URI symptoms and sore throat. Reports the sore throat has not gotten better. States she feels her throat closing up. Reports no other symptoms at this time but does state she is worried about her breathing if the swelling/pain worsens. No skin rash, wheezing, chest pain, headache, numbness, tingling or weakness. reports coughing up green colored sputum.). Similar symptoms previously: None. Recent medical care: The patient was seen recently in the emergency department and a clinic. REVIEW OF SYSTEMS No fever or nausea. All systems otherwise negative, except as recorded above. PAST HISTORY See nurses notes. SOCIAL HISTORY Former smoker. No alcohol use or drug use. No recent travel. Is a local resident. FAMILY HISTORY (no known family history of inflammatory bowel disease). ADDITIONAL NOTES The nursing notes have been reviewed. PHYSICAL EXAM Vital Signs: 04/18/2016 11:06 BP: 173/88. HR: 91. RR: 24. O2 saturation: 99%. Temp: 98.7 F. Blood pressure normal. Oxygen saturation normal. Appearance: Alert. No acute distress. Head: Normal external inspection. Eyes: Pupils equal, round and reactive to light. Conjunctivae and eyelids normal. ENT: Ears normal. Nose normal. Pharynx normal. Lips normal. Gums normal. No trismus present. Uvula midline. (no stridor. no brawny edema.). No dental decay or tenderness. Neck: Trachea midline. No adenopathy. Thyroid normal. No meningeal signs. CVS: Normal heart rate and rhythm. Heart sounds normal. Pulses normal. Respiratory: No respiratory distress. Breath sounds normal. Chest nontender. Abdomen: Soft and nontender. No organomegaly. Skin: Normal skin color. No rash. Normal skin turgor. Extremities: Extremities exhibit normal ROM. Extremities nontender. LABS, X-RAYS, AND EKG EKG: No acute ischemia. Normal sinus rhythm. Rate: 91. Normal P waves. Normal ZIGGY. Normal QRS complex. Q waves in lead V1 and V2. Normal axis. Normal ST and T waves, QT and QTc. EKG unchanged when compared with prior EKG. The study has been interpreted contemporaneously. The study has been independently viewed by me. The EKG appears to be a good tracing. Chest X-ray: (PROCEDURE: XR CHEST 2 VIEW INDICATION: COUGH, initial encounter TECHNIQUE: PA and lateral view. COMPARISON: Chest x-ray 04/05/2016 FINDINGS: Lungs are clear. Median sternotomy and CABG. Heart size, mediastinum and pulmonary vessels are normal. Bony thorax is unremarkable. IMPRESSION: 1. No acute changes 2. CABG). Laboratory Tests: Culture, Strep Screen: (ARLYN: 04/18/2016 11:26) ( [id number] 04/18/2016 11:44) Final results Test Result Flag Units (Reference) RAPID STREP SCREEN - THROAT DATE: 04/18/16 NEGATIVE SCREEN: RAPID STREP SCREEN NEGATIVE; CONFIRMATION TO FOLLOW . PROGRESS AND PROCEDURES Course of Care: the patient is a 70 yo female with recent URI diagnosis presenting for evaluation of sore throat. no signs of airway compromise or concerning air way findings for FAUCETS ASSEMBLER, RTA, or ludwigs. Patient does not have signs of allergic type reaction. Viral etiology or strep likely. Strep test ordered. Patient agreeable to treatment and plan. patient with cough and pneumonia also a consideration. Patient agreeable to treatment and plan. Steroids provided for the swelling and throat pain. Humidified air provided. Work up shows patient to have negative chest XR and rapid strep. EKG was obtained from triaged due to reported shortness of breath. EKG negative and patient more with problems in throat and concern for shortness of breath rather than symptoms or shortness of breath. Patient without significant relief of symptoms. Patient to be given viscuss lidocaine for discomfort. patient continues to be non-toxic. Did have discussion about possible auto-immune etiology and crohn's disease. Also considered esophageal webs and pernicious anemia however these would be difficult to diagnosis in the ED. Patient did report improvement with the lidocaine. Rx provided. Follow up with PCP recommended. Do not feel symptoms are consistent with AMI, PE, or other more sinister etiology. Do not feel patient requires an admit to the hospital at this time or further ED workup. Patient resting in bed and in no acute distress. Discussed with patient work up, diagnosis, home care, follow up, and return precautions. All questions answered. Patient expressed understanding of these instructions and was agreeable to them. Disposition: Discharged. Condition: good. CLINICAL IMPRESSION 04/18/2016 13:23 BP: 160/76. HR: 72. RR: 16. O2 saturation: 98%. Hypertensive. Oxygen saturation normal. Acute viral pharyngitis Essential hypertension. INSTRUCTIONS Warnings: GENERAL WARNINGS: Return or contact your physician immediately if your condition worsens or changes unexpectedly, if not improving as expected, or if other problems arise. Specifically return if pain, vomiting, bleeding, breathing difficulty or fever. Your Current Medications: CONTINUE TAKING THE FOLLOWING MEDICATIONS: Allopurinol Oral : Tablet 300 mg, 1 tablet daily. Aspirin Oral : Tablet 325 mg, 1 tablet daily. Chlorthalidone Oral : Tablet 25 mg, 1 tablet daily. D3 Adult Oral. Gabapentin Oral : Capsule 300 mg, 1 capsule 2x a day. Isosorbide Mononitrate Oral : 30mg daily. Levothyroxine Sodium Oral : 137mcg daily. Melatonin Oral. MetFORMIN HCl ER (MOD) Oral : Tablet Extended Release 24 Hour 500 mg, 1 tablet twice a day. Metoprolol Tartrate Oral : Tablet 50 mg, 1 tablet twice daily. Nitroglycerin Sublingual. Omeprazole Oral : 20 mg daily. Oxybutynin Chloride ER Oral : Tablet Extended Release 24 Hour 5 mg, 1/2 tablet 3 times daily. Probiotic Oral : 1 pill daily. Simvastatin Oral : Tablet 80 mg, 1/2 tablet daily. Prescription Medications: viscous lidocaine 2%. As needed for sore throat Q6H. Dispense one bottle. Follow-up: Return to the emergency department as needed. Follow up with your doctor in three days. Reason for referral: recheck today's concerns. Summary of care provided to patient via paper. Screening today revealed the patient's blood pressure to be in the normal range. The patient should follow up with a primary care provider for blood pressure management. Understanding of the discharge instructions verbalized by patient and parent. (Electronically signed by Clif Victoria Dr. 04/20/2016 3:40)
--- NOTE | 2016-04-18 13:28 | ED NURSING NOTES ---
Clinical Report - [facility] [address] [place] [address] 04/18/2016 10:59 Patient: HELADIO VILLEGAS TRIAGE Triage time 11:02. Acuity: LEVEL 3. Chief Complaint: SHORTNESS OF BREATH. 11:14 04/18/16. Alert. SEPSIS SCREEN: Sepsis Screen. Negative (no infection suspected/documented). Temperature not greater than 38.3 degrees C (101 degrees F). --11:14 Sandor Mosher R.N. 11:06 04/18/16. BP: 173/88. HR: 91. RR: 24. O2 saturation: 99% on room air. Temp: 98.7 F (oral). Pain level now 1010. --11:14 Sandor Mosher R.N. Weight: 68.9 kg stated. Height/Length: 62 inches Per Patient. BMI: 27.8. --11:06 Sandor Mosher R.N. Medications Allopurinol Oral (Tablet 300 mg) 1 tablet, daily. Aspirin Oral (Tablet 325 mg) 1 tablet, daily. Chlorthalidone Oral (Tablet 25 mg) 1 tablet, daily. D3 Adult Oral. --11:12 Sandor Mosher R.N. Gabapentin Oral (Capsule 300 mg) 1 capsule, 2x a day. Isosorbide Mononitrate Oral 30mg, daily. Levothyroxine Sodium Oral 137mcg, daily. Melatonin Oral. MetFORMIN HCl ER (MOD) Oral (Tablet Extended Release 24 Hour 500 mg) 1 tablet, twice a day. Metoprolol Tartrate Oral (Tablet 50 mg) 1 tablet, twice daily. Nitroglycerin Sublingual. Omeprazole Oral 20 mg, daily. Oxybutynin Chloride ER Oral (Tablet Extended Release 24 Hour 5 mg) 1/2 tablet, 3 times daily. Probiotic Oral 1 pill, daily. Simvastatin Oral (Tablet 80 mg) 1/2 tablet, daily. --11:12 Sandor Mosher R.N. Allergies Amlodipine. Bactrim. (Bactrim DS 800/160 SMZ/TMP 800/160) Ciprofloxacin. Codeine. Erythromycin. Nitrofurantoin. Nuts. Penicillin. PredniSONE. Zestril. --11:12 Sandor Mosher R.N. All vaccines. --11:12 Sandor Mosher R.N. Medication/allergy information source: the patient. --11:14 Sandor Mosher R.N. History Primary physician (maylin). ( c/o sore throat x 8 weeks, called 911 today due to feeling like her throat was tightening and shortening of breath.). This started today. Treatment MANAGER OF INFORMATION: (albuterol). EMS treatment MANAGER OF INFORMATION verbally communicated. BP: 170/99. HR: 90. RR: 22. O2 saturation: 99 % room air. End tidal CO2: 30. Upon arrival patient awake. SOCIAL HX: Former smoker, end date 2006. No alcohol use or drug use. FALL RISK ASSESSMENT: Fall risk assessment completed. No fall risk identified. NUTRITIONAL RISK ASSESSMENT: The nutritional risk assessment revealed no deficiencies. FUNCTIONAL ASSESSMENT: Functional assessment: no impairments noted. LEARNING NEEDS ASSESSMENT: The learning needs assessment revealed no barriers. SKIN INTEGRITY ASSESSMENT: Skin integrity risk assessment completed. No skin integrity risk identified. --11:14 Sandor Mosher R.N. PROBLEMS: URI. Bronchospasm. Pharyngitis. Atrial Fibrillation. Allergic Reaction. Abnormal Test. Syncope. Valvular Heart Disease. Myocardial Infarction. Diabetes Mellitus. COPD - Chronic Obstructive Pulmonary Disease. Pneumonia. Heart Disease. Congestive Heart Failure. Asthma. Arthritis. --11:12 Sandor Mosher R.N. ADDITIONAL SURGERIES: Cholecystectomy. Coronary Artery Bypass Graft. Hysterectomy. Oophorectomy. Right breast lump removed. Salpingectomy. --11:12 Sandor Mosher R.N. Interventions ID band on patient. To treatment room. --11:14 Sandor Mosher R.N. PHYSICAL ASSESSMENT 11:15 04/18/16. To room via stretcher. GENERAL / NEURO / PSYCH: Alert. Oriented X 4. Appears anxious. RESPIRATORY: Mild respiratory distress. The patient can speak in full sentences. Chest nontender. CVS: Capillary refill less than 2 seconds. GI / : Abdomen soft and nontender. SKIN: Skin is warm and dry. --11:15 Sandor Mosher R.N. NURSING PROGRESS NOTES 11:15 04/18/16. The plan of care for this patient has been created. Patient gowned. Head of bed elevated. Call light placed in reach. Bed placed in lowest position. Brakes of bed on. Patient ready for evaluation- chart flagged. --11:15 Sandor Mosher R.N. EKG time: (1110). EKG was ordered, performed by a tech and shown to the ED physician. --11:17 Barbi Clarke ER Tech1 Patient ID band checked for patient name and birthdate: patient confirmed. Throat swab obtained for rapid strep; labeled in the presence of the patient and sent to lab. --11:33 Sandor Mosher R.N. Patient transported to radiology by stretcher with tech. --11:34 Sandor Mosher R.N. 11:39 04/18/2016 Site #1 started via IV in the right forearm with an 20g angiocath, with aseptic technique and good blood return; one attempt. Saline lock flushed with 10 mL saline. --11:44 Sandor Mosher R.N. 11:39 04/18/2016 Decadron IVP 10 mg given over 2 minute(s) via site #1. Allergies verified and confirmed 5 rights. IV patency established. IV site checked: no pain, redness, or swelling. IV flushed thoroughly pre- and post-medication administration. IVP given by RN. --11:44 Sandor Mosher R.N. 11:45 04/18/16. ( placed on humidified medical air via NC, patient sat 99% on room air). --11:45 Sandor Mosher R.N. 11:48 04/18/16. laboratory monitor, pulse oximeter and NIBP monitor placed on patient. --11:48 Sandor Mosher R.N. 11:54 04/18/16. BP: 146/69. HR: 82. RR: 15. O2 saturation: 97%. --11:54 Sandor Mosher R.N. 11:54 04/18/16. Cardiac rhythm: normal sinus rhythm. --11:54 Sandor Mosher R.N. 12:44 04/18/16. BP: 186/66. HR: 69. RR: 17. O2 saturation: 99% on room air. --12:47 Sandor Mosher R.N. 12:47 04/18/16. Cardiac rhythm: normal sinus rhythm. The patient reports no complaints and she is calm and resting quietly. Overall patient status is improved- she states feels better. --12:47 Sandor Mosher R.N. 12:51 04/18/2016 Lidocaine Viscous PO Solution/Elixir 10 mL given. Allergies verified and confirmed 5 rights. --12:51 Sandor Mosher R.N. 13:23 04/18/16. Cardiac rhythm: normal sinus rhythm. --13:23 Sandor Mosher R.N. 13:23 04/18/16. BP: 160/76. HR: 72. RR: 16. O2 saturation: 98%. --13:23 Sandor Mosher R.N. DISPOSITION / DISCHARGE 14:10. Departure time: 1410. ( 13:23 04/18/16. BP: 160/76. HR: 72. RR: 16. O2 saturation: 98%. --13:23 Sandor Mosher R.N.). No learning barriers present. Discharge instructions provided and reviewed with the patient. Reviewed medication(s) side effects, precautions, dosing and course information. Prescription(s) given to the patient. Reviewed referral to family practice for followup. Patient verbalized understanding. Written instructions provided in Ukrainian. The patient was discharged home and accompanied by associate dean of students. She left the Emergency Department ambulatory and via private vehicle. Rough Carpenter driving. Medication list reviewed and validated. --14:13 Janel Thompson R.N. 14:10 04/18/16. RR: 18. --14:13 Janel Thompson R.N. 14:10 04/18/2016 Site #1 removed upon discharge. Catheter intact. Manual pressure and bandaid applied. --14:14 Janel Thompson R.N. Locked/Released at 04/18/2016 14:14 by Janel Thompson R.N.
--- NOTE | 2016-04-20 03:40 | ED MAR SUMMARY ---
..... Medication Administration Record [facility] [address] [place] [address] Patient: HELADIO VILLEGAS Visit ID: [id number] 70y, F Weight: 68.9 kg Height/Length: 62 in BMI: 27.8 ALLERGIES: All vaccines, Amlodipine, Bactrim, Ciprofloxacin, Codeine, Erythromycin, Nitrofurantoin, Nuts, Penicillin, PredniSONE, Zestril Given 11:39 04/18/2016 Sandor Mosher R.N. Medication Administered: DECADRON [IVP], Dose: 10 mg IVP over 2 minute(s), Site: #1 right forearm. Medication Ordered: Decadron IV 10 mg (NOW). Given 12:51 04/18/2016 Sandor Mosher R.N. Medication Administered: LIDOCAINE VISCOUS [PO], Dose: 10 mL Solution/Elixir PO. Medication Ordered: Lidocaine Viscous PO (Solution 2 %) 10 mL (NOW).
--- NOTE | 2016-04-20 03:40 | ED MAR SUMMARY ---
..... Medication Administration Record [facility] [address] [place] [address] Patient: HELADIO VILLEGAS Visit ID: [id number] 70y, F Weight: 68.9 kg Height/Length: 62 in BMI: 27.8 ALLERGIES: All vaccines, Amlodipine, Bactrim, Ciprofloxacin, Codeine, Erythromycin, Nitrofurantoin, Nuts, Penicillin, PredniSONE, Zestril Given 11:39 04/18/2016 Sandor Mosher R.N. Medication Administered: DECADRON [IVP], Dose: 10 mg IVP over 2 minute(s), Site: #1 right forearm. Medication Ordered: Decadron IV 10 mg (NOW). Given 12:51 04/18/2016 Sandor Mosher R.N. Medication Administered: LIDOCAINE VISCOUS [PO], Dose: 10 mL Solution/Elixir PO. Medication Ordered: Lidocaine Viscous PO (Solution 2 %) 10 mL (NOW).
--- NOTE | 2016-04-20 03:40 | ED MED RECONCILIATION SUMMARY ---
Patient: HELADIO VILLEGAS Medication Reconciliation Report [facility] VisitID: [id number] [place] [address] 70y, F Registration Date/Time: 04/18/2016 Weight: 68.9 kg Height/Length: 62 in. BMI: 27.8 ALLERGIES: All vaccines, Amlodipine, Bactrim, Ciprofloxacin, Codeine, Erythromycin, Nitrofurantoin, Nuts, Penicillin, PredniSONE, Zestril The patient's Home Medications are listed below: CONTINUE TAKING THE FOLLOWING MEDICATIONS: Allopurinol Oral (300 mg) 1 tablet, daily Aspirin Oral (325 mg) 1 tablet, daily Chlorthalidone Oral (25 mg) 1 tablet, daily D3 Adult Oral Gabapentin Oral (300 mg) 1 capsule, 2x a day Isosorbide Mononitrate Oral 30mg, daily Levothyroxine Sodium Oral 137mcg, daily Melatonin Oral MetFORMIN HCl ER (MOD) Oral (500 mg) 1 tablet, twice a day Metoprolol Tartrate Oral (50 mg) 1 tablet, twice daily Nitroglycerin Sublingual Omeprazole Oral 20 mg, daily Oxybutynin Chloride ER Oral (5 mg) 1/2 tablet, 3 times daily Probiotic Oral 1 pill, daily Simvastatin Oral (80 mg) 1/2 tablet, daily The source(s) of the original Home Medication information: patient The following Medications were given to the patient in the Emergency Department: Decadron [IVP] IVP 10 mg, administered: 04/18/2016 11:39:00 AM Lidocaine Viscous [PO] PO 10 mL, administered: 04/18/2016 12:51:00 PM The following Medications were prescribed to the patient: viscous lidocaine 2%. As needed for sore throat Q6H. Dispense one bottle. -- Clif Victoria Dr.
--- NOTE | 2016-04-20 03:40 | ED MED RECONCILIATION SUMMARY ---
Patient: HELADIO VILLEGAS Medication Reconciliation Report [facility] VisitID: [id number] [place] [address] 70y, F Registration Date/Time: 04/18/2016 Weight: 68.9 kg Height/Length: 62 in. BMI: 27.8 ALLERGIES: All vaccines, Amlodipine, Bactrim, Ciprofloxacin, Codeine, Erythromycin, Nitrofurantoin, Nuts, Penicillin, PredniSONE, Zestril The patient's Home Medications are listed below: CONTINUE TAKING THE FOLLOWING MEDICATIONS: Allopurinol Oral (300 mg) 1 tablet, daily Aspirin Oral (325 mg) 1 tablet, daily Chlorthalidone Oral (25 mg) 1 tablet, daily D3 Adult Oral Gabapentin Oral (300 mg) 1 capsule, 2x a day Isosorbide Mononitrate Oral 30mg, daily Levothyroxine Sodium Oral 137mcg, daily Melatonin Oral MetFORMIN HCl ER (MOD) Oral (500 mg) 1 tablet, twice a day Metoprolol Tartrate Oral (50 mg) 1 tablet, twice daily Nitroglycerin Sublingual Omeprazole Oral 20 mg, daily Oxybutynin Chloride ER Oral (5 mg) 1/2 tablet, 3 times daily Probiotic Oral 1 pill, daily Simvastatin Oral (80 mg) 1/2 tablet, daily The source(s) of the original Home Medication information: patient The following Medications were given to the patient in the Emergency Department: Decadron [IVP] IVP 10 mg, administered: 04/18/2016 11:39:00 AM Lidocaine Viscous [PO] PO 10 mL, administered: 04/18/2016 12:51:00 PM The following Medications were prescribed to the patient: viscous lidocaine 2%. As needed for sore throat Q6H. Dispense one bottle. -- Clif Victoria Dr.
--- NOTE | 2016-04-20 03:40 | ED DISCHARGE INSTRUCTIONS ---
Patient: HELADIO VILLEGAS General Instructions [facility] VisitID: [id number] [place] [address] 70y, F Registration Date/Time: 04/18/2016 04/18/2016 13:23 BP: 160/76. HR: 72. RR: 16. O2 saturation: 98%. Hypertensive. Oxygen saturation normal. Acute viral pharyngitis Essential hypertension. INSTRUCTIONS Warnings: GENERAL WARNINGS: Return or contact your physician immediately if your condition worsens or changes unexpectedly, if not improving as expected, or if other problems arise. Specifically return if pain, vomiting, bleeding, breathing difficulty or fever. Your Current Medications: CONTINUE TAKING THE FOLLOWING MEDICATIONS: Allopurinol Oral : Tablet 300 mg, 1 tablet daily. Aspirin Oral : Tablet 325 mg, 1 tablet daily. Chlorthalidone Oral : Tablet 25 mg, 1 tablet daily. D3 Adult Oral. Gabapentin Oral : Capsule 300 mg, 1 capsule 2x a day. Isosorbide Mononitrate Oral : 30mg daily. Levothyroxine Sodium Oral : 137mcg daily. Melatonin Oral. MetFORMIN HCl ER (MOD) Oral : Tablet Extended Release 24 Hour 500 mg, 1 tablet twice a day. Metoprolol Tartrate Oral : Tablet 50 mg, 1 tablet twice daily. Nitroglycerin Sublingual. Omeprazole Oral : 20 mg daily. Oxybutynin Chloride ER Oral : Tablet Extended Release 24 Hour 5 mg, 1/2 tablet 3 times daily. Probiotic Oral : 1 pill daily. Simvastatin Oral : Tablet 80 mg, 1/2 tablet daily. Prescription Medications: viscous lidocaine 2%. As needed for sore throat Q6H. Dispense one bottle. Follow-up: Return to the emergency department as needed. Follow up with your doctor in three days. Reason for referral: recheck today's concerns. Summary of care provided to patient via paper. Screening today revealed the patient's blood pressure to be in the normal range. The patient should follow up with a primary care provider for blood pressure management. Understanding of the discharge instructions verbalized by patient and parent. ADDITIONAL INFORMATION Viral Pharyngitis (Sore Throat) Your throat pain is due to an infection called "Viral Pharyngitis", commonly known as "Sore Throat". This is a contagious illness. It is spread through the air by coughing, kissing or by touching others after touching your mouth or nose. Symptoms include throat pain worse with swallowing, aching all over, headache and fever. Unlike strep throat, which is a bacterial infection, this illness does not require treatment with an antibiotic. Home Care: If your symptoms are severe, rest at home for the first 2-3 days. Children: Use acetaminophen (Tylenol) for fever, fussiness or discomfort. In infants over six months of age, you may use ibuprofen (Children's Motrin) instead of Tylenol. [NOTE: If your child has chronic liver or kidney disease or ever had a stomach ulcer or GI bleeding, talk with your luz doctor before using these medicines.] (Aspirin should never be used in anyone under 18 years of age who is ill with a fever. It may cause severe liver damage.) Adults: You may use acetaminophen (Tylenol) or ibuprofen (Motrin, Advil) to control pain or fever, unless another medicine was prescribed. [NOTE: If you have chronic liver or kidney disease or ever had a stomach ulcer or GI bleeding, talk with your doctor before using these medicines.] Throat lozenges or sprays (Chloraseptic and others) will reduce pain. Gargling with warm salt water will also reduce throat pain. Dissolve 1/2 teaspoon of salt in 1 glass of warm water. This is especially useful just before meals. Follow Up with your doctor or as directed by our staff if you are not improving over the next week. Get Prompt Medical Attention if any of the following occur: Fever over 100.5F (38.0C) oral, or over 101.5F (38.6C) rectal for more than three days New or worsening ear pain, sinus pain or headache Painful lumps in the back of your neck Unable to swallow liquids or open your mouth wide due to throat pain Trouble breathing or noisy breathing Muffled voice New rash High Blood Pressure --Established High Blood Pressure (Hypertension) is a chronic disease. The cause is unknown in most cases. It can usually be controlled with lifestyle changes and/or medicines. Symptoms of high blood pressure may include headache, dizziness, visual changes, chest pain and shortness of breath. Sometimes it causes no symptoms at all. However, even if there are no symptoms, untreated high blood pressure increases the risk of heart attack, also known as acute myocardial infarction, or AMI, and stroke. It is a serious health risk and should not be ignored. A normal blood pressure is 120/80 or less. The first (top) number is the "systolic" pressure. The second (bottom) number is the "diastolic" pressure. Hypertension exists when either the top number is 140 or higher, OR the bottom number is 90 or higher on repeated measurements. Home Care: All patients with high blood pressure should do the following to lower their pressure. If you are on medicines, then these methods may reduce or eliminate your need for medicines in the future. Begin a weight loss program if you are overweight. Reduce your salt intake. Avoid high salt foods (olives, pickles, smoked meats, salted potato chips, etc.). Do not add salt to your food at the table. Use only small amounts of salt when cooking. Begin an exercise program. Discuss with your doctor what type of exercise program would be best for you. It doesn't have to be difficult. Even brisk walking for 20 minutes three times a week is a good form of exercise. Avoid medicines which contain heart stimulants. This includes many cold and sinus decongestant pills and sprays as well as diet pills. Check the warnings about hypertension on the label. Stimulants such as amphetamine or cocaine could be lethal for someone with hypertension. Never take these. Limit your caffeine intake or switch to caffeine-free products. Stop smoking. If you are a long-time smoker, this can be hard. Enroll in a stop-smoking program to improve your chance of success. Learning how to handle stress better is an important part of any program to lower blood pressure. Learn about relaxation methods such as meditation, yoga or biofeedback. If medicines were prescribed, take them exactly as directed. Missing doses may cause your blood pressure get out of control. Consider buying an automatic blood pressure machine (available at most pharmacies). Use this to monitor your blood pressure at home and report the results to your doctor. Follow Up: Regular visits to your own physician for blood pressure checks and medicine adjustment is an important part of your care. Make a follow-up appointment as directed by our staff. Get Prompt Medical Attention if any of the following occur: Chest pain or shortness of breath Severe headache Throbbing or rushing sound in the ears Nosebleed Sudden severe abdominal pain Extreme drowsiness, confusion or fainting Dizziness or vertigo (dizziness with spinning sensation) Weakness of an arm or leg or one side of the face Difficulty with speech or vision You have been given the following additional information: Pharyngitis, Viral Hypertension, Established (Electronically signed by Clif Victoria Dr. 04/20/2016 3:40)
== END 2016-04-18 14:10 | disposition home or self-care (01) ==
LOC: ED SRH 10:54
DX: J02.9 Acute pharyngitis, unspecified (principal); I10 Essential (primary) hypertension; R06.02 Shortness of breath; Z87.891 Personal history of nicotine dependence
CPT/HCPCS: 90154; 90159

== ENCOUNTER 2016-06-08 12:59 | Outpatient (CLI) | payer OTHER ==
--- NOTE | 2016-06-08 14:01 | DIAGNOSTIC IMAGING REPORT ---
PROCEDURE: CT ABDOMEN/PELVIS W/O CONTRAST INDICATION: ABD/PELVIS RLQ PAIN TECHNIQUE: Axial CT images were obtained through the abdomen and pelvis without IV contrast. Coronal and sagittal reformations were created. COMPARISON: 01/14/2013 FINDINGS: Clear lung bases. Normal sized heart. Very small hiatal hernia. The gallbladder surgically absent. There is a drop clip along the posterior aspect of the liver. Mild right hydronephrosis with slight renal enlargement and perinephric inflammation. There are two nonobstructing right lower pole intrarenal calculi, the larger measuring 3 mm. There is mild diffuse right hydroureter but no ureteral calcifications. No left-sided urinary calcifications or hydronephrosis. Both kidneys demonstrate mild cortical thinning. The unenhanced appearance of the liver, adrenal glands, pancreas and spleen is normal. The abdominal aorta is normal in its course and caliber with moderate atherosclerosis. Multiple nonenlarged retroperitoneal lymph nodes present. There are no suspicious calcifications, retroperitoneal adenopathy or masses. The stomach, upper bowel loops, and mesentery are normal. Intact anterior abdominal wall. No free fluid or inflammation. The urinary bladder is partially decompressed. No calcifications. There is extensive diverticulosis of the sigmoid colon but no acute inflammation. The uterus is surgically absent. The unenhanced appearance of the pelvic vessels, and pelvic small bowel loops is normal. Normal appendix. No suspicious calcifications, free pelvic fluid or mass. Severe degenerative disc disease at L4-5 end L5-S1. IMPRESSION: 1. Mild right hydroureteronephrosis with perinephric inflammation. An obstructing process is not visible and the small calcification may have already passed. Alternatively, there may be a radiolucent stone present. 2. Normal appendix. 3. Extensive sigmoid diverticulosis without acute diverticulitis. 4. Status post cholecystectomy and hysterectomy. 4. Discussed with Yue Scott. All CT scans at this facility use dose modulation, iterative reconstruction, and/or weight-based dosing when appropriate to reduce radiation dose to as low as reasonably achievable.
== END 2016-06-08 23:00 | disposition home or self-care (01) ==
LOC: CT SRH 12:59
DX: N13.6 Pyonephrosis (principal); K57.30 Diverticulosis of large intestine without perforation or abscess without bleeding